=== PATIENT | female | born 1975 | race Caucasian/White ===

== ENCOUNTER → 2024-04-05 | Outpatient (CLI) | payer OTHER, SELFPAY ==
[2024-04-05 08:44] LABS: Creatinine MALB Rnd Ur 229 mg/dL (30-125); Microalbumin Creat Ratio 10 mg/gCrea (<30); Microalbumin, Random Urine 22 mg/L (0-300)
[2024-04-05 08:44] LABS: Basophils # (Auto) 0.1 Thou/mm3 (0.0-0.2); Basophils % (Auto) 1 % (0-2.5); Eosinophils # (Auto) 0.1 Thou/mm3 (0.0-0.5); Eosinophils % (Auto) 2 % (0-10); Hematocrit 43.8 % (36.0-46.0); Hemoglobin 14.8 g/dL (12.0-16.0); Immature Granulocytes % (Auto) 0 % (0-0); Immature Granulocytes Auto 0.03 Thou/mm3 (0.00-0.00); Lymphocytes # (Auto) 2.5 Thou/mm3 (1.0-4.8); Lymphocytes % (Auto) 38 % (10-50); Mean Corpuscular HGB Conc 33.8 g/dl (31.0-37.0); Mean Corpuscular Hemoglobin 29.8 pg (25.0-35.0); Mean Corpuscular Volume 88 fL (80-100); Monocytes # (Auto) 0.3 Thou/mm3 (0.0-0.8); Monocytes % (Auto) 5 % (0-12); Neutrophils # (Auto) 3.6 Thou/mm3 (1.8-7.7); Neutrophils % (Auto) 55 % (37-80); Nucleated Red Blood Cell % 0 /100 WBC (0); Platelet Count 187 Thou/mm3 (140-440); RDW Standard Deviation 41.1 fL (36.4-46.3); Red Blood Count 4.97 Miln/mm3 (4.00-5.20); White Blood Count 6.7 Thou/mm3 (3.6-11.0)
[2024-04-05 08:48] LABS: Vitamin D 25 Hydroxy Total 33.1 ng/mL (7.3-40.2)
[2024-04-05 08:49] LABS: Alanine Aminotransferase 23 U/L (10-49); Albumin, Serum 4.8 gm/dL (3.5-5.0); Albumin/Globulin Ratio 2.7 (1.2-2.2); Alkaline Phosphatase 72 U/L (46-116); Anion Gap 6 (7-16); Aspartate Amino Transferase 13 U/L (0-34); BUN/Creatinine Ratio 15 Ratio (12-20); Bilirubin,Total 0.3 mg/dL (0.3-1.2); Blood Urea Nitrogen 12 mg/dL (9-23); Calcium 9.8 mg/dL (8.3-10.6); Calcium (Corrected) 9.8 mg/dL (8.5-10.1); Cardiac Risk Estimate 3.2 RATIO (3.7-5.6); Chloride 108 mMol/L (98-107); Cholesterol 171 mg/dL (132-200); Creatinine (Component) 0.8 mg/dL (0.6-1.3); Globulin 1.8 gm/dL (2.3-3.5); Glucose 110 mg/dL (74-106); HDL Cholesterol 54 mg/dL (40-60); LDL Cholesterol,Calculated 88 mg/dL (0-130); Osmolality,Calculated 289 (275-295); Potassium 4.1 mMol/L (3.4-5.1); Sodium 145 mMol/L (136-145); Total Protein 6.6 gm/dL (5.7-8.2); Triglycerides 145 mg/dL (30-150); eGFR > 60 See Note
== END | disposition home or self-care (01) ==
PROVIDERS: PCP Family Medicine; Referring Provider Family Medicine; Visit Provider Family Medicine
DX: E55.9 Vitamin D deficiency, unspecified (principal); I10 Essential (primary) hypertension; Z13.220 Encounter for screening for lipoid disorders
CPT/HCPCS: 36415; 80053; 80061; 82043; 82306; 82570; 85025

== ENCOUNTER 2025-01-31 18:47 | Emergency (ER) | payer OTHER, SELFPAY ==
--- NOTE | 2025-01-31 18:52 | EKG_ITS ---
[facility] Test Date: 2025-01-31 Pat Name: MARTIN PUTNAM Department: Room: - Gender: Female Care Director Rn: : 1975 Requested By: Thuan Feldman Order Number: [id number] Reading MD: Thuan Feldman Measurements Intervals [place] Rate: 84 P: 57 MI: 128 QRS: 40 QRSD: 97 T: 39 QT: 369 QTc: 437 Interpretive Statements SINUS RHYTHM NONSPECIFIC T-WAVE ABNORMALITY No previous ECG available for comparison /[id number]/S0/[id number]
[2025-01-31 19:08] VITALS: BP 145/90; PULSE 86; RESP 20; TEMP 36.7; O2SAT 96
--- NOTE | 2025-01-31 19:14 | XR_ITS ---
Examination: Shoulder, right, 3 views Technique: Shoulder AP internal rotation, AP external rotation, Y view shoulder, 3 views Exam date and time : January 31, 2025, 192 hours INDICATIONS: Right shoulder pain today. FINDINGS: Moderate narrowing glenohumeral joint No shoulder fracture or dislocation Moderate osteoarthritis acromioclavicular joint No calcific tendinitis IMPRESSION: Moderate osteoarthritis
--- NOTE | 2025-01-31 19:14 | XR_ITS ---
EXAMINATION: PA chest single view TECHNIQUE: Upright PA chest single view Date and time: January 31, 2025, 1928 hours, comparison March 25, 2016 INDICATIONS: Chest pain chest pressure today FINDINGS: Normal heart size Lungs are clear. Osseous structures are intact IMPRESSION: No active disease
--- NOTE | 2025-01-31 19:14 | PD.EDRME ---
Rapid Medical Screening Exam [facility] Arrival date/time: 01/31/25 18:47 49F with history of anxiety presents to ED with 2 days of R shoulder pain that radiates down to chest. Patient denies URI symptoms and SOB. Patient states this doesn't feel like her previous panic/anxiety attacks. Chief Complaint: Chest Pain Vital signs: Vital Signs Temperature 98.1 F 01/31/25 19:08 Pulse Rate 86 01/31/25 19:08 Respiratory Rate 20 01/31/25 19:08 Blood Pressure 145/90 H 01/31/25 19:08 Pulse Oximetry (%) 96 01/31/25 19:08 Oxygen Delivery Method Room Air 01/31/25 19:08 Exam: Clear lungs and normal WOB. Clinical Impression: anxiety vs ACS vs costochondritis vs atypical chest pain vs joint pain
[2025-01-31 19:36] LABS: Basophils # (Auto) 0.1 Thou/mm3 (0.0-0.2); Basophils % (Auto) 1 % (0-2.5); Eosinophils # (Auto) 0.3 Thou/mm3 (0.0-0.5); Eosinophils % (Auto) 3 % (0-10); Hematocrit 41.9 % (36.0-46.0); Hemoglobin 14.1 g/dL (12.0-16.0); Immature Granulocytes Auto 0.03 Thou/mm3 (0.00-0.00); Lymphocytes # (Auto) 3.4 Thou/mm3 (1.0-4.8); Lymphocytes % (Auto) 37 % (10-50); Mean Corpuscular HGB Conc 33.7 g/dl (31.0-37.0); Mean Corpuscular Hemoglobin 30.4 pg (25.0-35.0); Mean Corpuscular Volume 90 fL (80-100); Monocytes # (Auto) 0.6 Thou/mm3 (0.0-0.8); Monocytes % (Auto) 7 % (0-12); Neutrophils # (Auto) 4.8 Thou/mm3 (1.8-7.7); Neutrophils % (Auto) 53 % (37-80); Nucleated Red Blood Cell # 0.00 Thou/mm3 (0.00-0.00); Nucleated Red Blood Cell % 0 /100 WBC (0); Platelet Count 198 Thou/mm3 (140-440); RDW Standard Deviation 43.6 fL (36.4-46.3); Red Blood Count 4.64 Miln/mm3 (4.00-5.20); White Blood Count 9.2 Thou/mm3 (3.6-11.0)
[2025-01-31 19:56] LABS: Alanine Aminotransferase 32 U/L (10-49); Albumin, Serum 4.9 gm/dL (3.5-5.0); Albumin/Globulin Ratio 2.3 (1.2-2.2); Alkaline Phosphatase 82 U/L (46-116); Anion Gap 9 (7-16); Aspartate Amino Transferase 13 U/L (0-34); BUN/Creatinine Ratio 15 Ratio (12-20); Bilirubin,Total 0.2 mg/dL (0.3-1.2); Blood Urea Nitrogen 12 mg/dL (9-23); Calcium 10.5 mg/dL (8.3-10.6); Calcium (Corrected) 10.5 mg/dL (8.5-10.1); Carbon Dioxide 26.3 mMol/L (20.0-31.0); Chloride 110 mMol/L (98-107); Creatinine (Component) 0.8 mg/dL (0.6-1.3); Globulin 2.1 gm/dL (2.3-3.5); Glucose 102 mg/dL (74-106); Osmolality,Calculated 288 (275-295); Potassium 3.2 mMol/L (3.4-5.1); Sodium 145 mMol/L (136-145); Total Protein 7.0 gm/dL (5.7-8.2); Troponin I < 0.002 ng/mL (0.0-0.045); eGFR > 60 See Note
--- NOTE | 2025-01-31 21:11 | PD.EDCHEST ---
ED Chest Pain RME/HPI General Chief Complaint: Chest Pain Stated Complaint: CHEST TIGHTNESS Time Seen by Provider: 01/31/25 20:22 Arrival date/time: 01/31/25 18:47 49-year-old female patient with no past medical history except for chronic smoking, came in for evaluation regarding right-sided chest discomfort. Onset of symptoms since last night as sudden onset of right-sided chest discomfort described as dull ache, severity moderate. Patient told me that she has been coughing on and off due to smoking. Patient denies any fever denies any other complaints no medication was taken prior to ER visit. RME / HPI RME / HPI narrative: 01/31/25 18:47 49F with history of anxiety presents to ED with 2 days of R shoulder pain that radiates down to chest. Patient denies URI symptoms and SOB. Patient states this doesn't feel like her previous panic/anxiety attacks. Exam: Clear lungs and normal WOB. Impression: anxiety vs ACS vs costochondritis vs atypical chest pain vs joint pain Related Data Home Medications ?Medication ?Instructions ?Recorded ?Confirmed Fluticasone Propionate NASAL * 1 spry NASAL BID #0 spry 03/25/16 (FLONASE *) Propranolol Hcl * (INDERAL *) 10 mg PO QDAY #0 tabs 03/25/16 bupropion HCl 150 mg tablet,12 hr 150 mg PO QDAY ##0 03/25/16 sustained-release (Wellbutrin SR) fexofenadine 180 mg tablet 180 mg PO QDAY #0 tabs 03/25/16 (Radha Allergy) montelukast 10 mg tablet 10 mg PO HS #0 tabs 03/25/16 (Singulair) ranitidine HCl 150 mg tablet 150 mg PO BID #0 tabs 03/25/16 (Zantac) Allergies Allergy/AdvReac Type Severity Reaction Status Date / Time No Known Allergies Allergy Verified 01/31/25 18:50 Review of Systems Review of Systems Narrative Review of Systems: Review of system reviewed and within normal limits except mentioned in HPI ED Exam Narrative Physical exam: VITAL SIGNS: Reviewed. GENERAL APPEARANCE: Alert and interactive, follows commands, no acute distress, HEAD AND FACE: Non-traumatic. ENT: PERRL, pink conjunctivitis, eyelid no trauma, Mucous membrane moist. NECK: Supple, nontender, no nuchal rigidity. CHEST: No tenderness, no crepitus, no paradoxical movement, no retractions. LUNGS: Clear, well ventilated, symmetric, no rales, no wheezing, no ronchi, no stridor, good breath sounds bilaterally. HEART: Regular rate, regular rhythm, no murmur, no gallops. ABDOMEN: Soft, positive bowel sounds, nondistended, no guarding, nontender, no rebound, no masses, RECTAL: Deferred. GENITAL: Deferred. NEUROLOGICAL: Gross motor function intact sensory function intact, Appropriate for age. MUSCULOSKELETAL: low back nontender, full range of motion. EXTREMITIES: Nontender, full range of motion. SKIN: Color pink, dry, no rash, no lacerations, no abrasions, no contusions. LYMPHATICS: Deferred. Course Quality Measures none Orders Category Date Time Status EKG (ED ONLY) *Do not use* NOW Care 01/31/25 18:52 Completed EKG (ED Only) Stat Exams 01/31/25 18:52 Draft XR chest 1V portable Stat Exams 01/31/25 19:14 Completed XR shoulder RT min 2V Stat Exams 01/31/25 19:14 Completed CBC Stat Lab 01/31/25 19:26 Completed Comprehensive Metabolic Panel Stat Lab 01/31/25 19:26 Completed Troponin I Stat Lab 01/31/25 19:26 Completed Ketorolac Inj [Toradol Inj] Med 01/31/25 21:10 Once 30 mg IM X1 ONE Potassium Chloride [K-Dur] Med 01/31/25 20:31 Discontinued 40 meq PO X1 ONE Vital Signs Vital signs: Vital Signs Temperature 98.1 F 01/31/25 19:08 Pulse Rate 86 01/31/25 19:08 Respiratory Rate 20 01/31/25 19:08 Blood Pressure 145/90 H 01/31/25 19:08 Pulse Oximetry (%) 96 01/31/25 19:08 Oxygen Delivery Method Room Air 01/31/25 19:08 Chest Pain MDM Narrative MDM Narrative:: 49-year-old female patient with no past medical history except for chronic smoking, came in for evaluation regarding right-sided chest discomfort. Onset of symptoms since last night as sudden onset of right-sided chest discomfort described as dull ache, severity moderate. Patient told me that she has been coughing on and off due to smoking. Patient denies any fever denies any other complaints no medication was taken prior to ER visit. Patient received potassium replacement for a potassium of 3.2. Was also given Toradol IM. X-ray shoulder showed arthritis of the shoulder. Chest x-ray showed I personally reviewed and interpreted the x-ray of this patient. There is no acute abnormalities found, no infiltrates no pneumothorax no hemothorax normal chest x-ray. Review of other structures was without significant abnormal findings also. I additionally reviewed the radiologist report and agree with the interpretation. EKG showed normal sinus rhythm, ventricular rate of 84 bpm, no ST segment elevation or depression noted. Results discussed with the patient and family. Patient is stable for discharge home. Patient was counseled about decreased smoking, but I think the patient is not ready to stop smoking. Stable for charged home Patient data External records reviewed:: None Clinical information provided by:: patient Social determinants that could affect healthcare access:: none Patient has the following chronic illnesses:: Chronic smoking How is presenting disease/condition affected by chronic disease/condition?: exacerbated by Evaluation data The following diagnostics were reviewed and interpreted by me:: lab results, radiology exam(s) and EKG tracing(s) Lab and/or radiology exams considered but not ordered:: None Interpretation Summary: See above Medications / Prescriptions Medications or Prescriptions considered but not ordered:: None Medication administrations:: Medication Administration History Discontinued Medications Potassium Chloride (Potassium Chloride 20 Meq Tabcr) 40 meq PO X1 ONE Stop: 01/31/25 20:32 Potassium replacement Consultations Consultation(s) initiated? (list below): No Diagnosis Chest Pain Differential Diagnosis: pneumothorax, atypical chest pain and chest pain Most likely diagnosis given after review of the tests above:: Right-sided chest pain Admission Indicated Admission indicated?: not indicated Admission Request Was there a request for admission?: No Disposition Plan Disposition Plan: Discharge Discharge Attestation Discharge Attestation: The patient and all family members were given an opportunity to ask questions and understood the discharge instructions. Discharge instructions specifically effects, indications for sooner follow up or return to the emergency department, and the expected course of current diagnosis. Patient condition: Stable Discharge Plan Plan Patient Disposition: HOME (Self Care) Discharge Disposition comment: Stable Prescriptions/Referrals Prescriptions/Med Rec: No Action bupropion HCl [Wellbutrin SR] 150 MG tablet extended release 12 hr 150 mg PO QDAY Qty: 0 fexofenadine [Radha Allergy] 180 MG tablet 180 mg PO QDAY Qty: 0 ranitidine HCl [Zantac] 150 MG tablet 150 mg PO BID Qty: 0 montelukast [Singulair] 10 MG tablet 10 mg PO HS Qty: 0 Fluticasone Propionate NASAL * (FLONASE *) 160 SPRAY/BTL SPRAY 1 spry NASAL BID Qty: 0 Propranolol Hcl * (INDERAL *) 10 MG tablet 10 mg PO QDAY Qty: 0 Referrals: No Primary/Family,Physician [Primary Care Provider] - In 1 week Problem List Clinical Impression: Chest pain Patient/Caregiver Discharge Instructions Discharge Activity: activity as tolerated Education Materials: ED Chest Pain, Noncardiac Additional Instructions: Thank you for the opportunity for serving you today. You are stable for discharged . You are advised to: Follow-up with your PCP in 1 to 2 days Return to ED for worsening of symptoms Increase oral fluids Take [id number] Tylenol or Motrin as needed for pain Print Language: Uzbek Stand Alone Forms: Landy Award Info., Patient Portal Info Letter PA/CORNELIUS Supervising Physician VENUS/CORNELIUS Supervising Physician: MD Brian
[2025-01-31] MEDS: KETOROLAC INJ 30 MG/ML VIAL IM (21:23)
[2025-01-31 21:54] VITALS: BP 119/78; PULSE 77; RESP 17; TEMP 36.6; O2SAT 97
== END 2025-01-31 21:54 | disposition home or self-care (01) ==
PROVIDERS: Physician Assistant; Emergency Provider Emergency Medicine
DX: F41.9 Anxiety disorder, unspecified (principal); F17.200 Nicotine dependence, unspecified, uncomplicated
CPT/HCPCS: 36415; 71045; 73030; 80053; 84484; 85025; 93005; 96372; 99284; J1885; A9270